=== PATIENT | male | born 1990 ===

== ENCOUNTER 2020-03-19 04:30 | Outpatient (REF) | payer OTHER, SELFPAY ==
[2020-03-20 17:19] LABS: SARS-CoV-2 RNA Not Detected (NotDetected); SARS-CoV-2 RNA Source Nasal/Nares
== END 2020-03-19 04:50 ==
LOC: LBO 04:30
PROVIDERS: Visit Provider Dentist Pediatric Dentistry
DX: Z20.828 Contact with and (suspected) exposure to other viral communicable diseases (principal)
CPT/HCPCS: U0003